=== PATIENT | female | born 1950 | race Caucasian/White ===

== ENCOUNTER 2024-06-11 09:32 | Observation (INO) ==
--- NOTE | 2024-05-15 13:45 | PAT Medication Instructions ---
Medication Instructions Date of Service May 15, 2024 Home Medications calcium 500 mg (carb,gluconate)-magnesium 250 mg (gluc,oxide) tablet (Calcium Magnesium) 2 tab PO DAILY fluoxetine 40 mg capsule 40 mg PO QAM omega 7-ado-akr-fish oil 1,200 mg (144 mg-216 mg) capsule (Fish Oil) 2 cap PO DAILY omeprazole 20 mg tablet,delayed release 20 mg PO QAM oxycodone 5 mg tablet 5 mg PO TID PRN pravastatin 40 mg tablet 40 mg PO HS ropinirole 5 mg tablet 5 mg PO BID STOP taking 2 weeks before surgery (or as soon as possible if surgery is within 2 weeks) omega 6-iyy-rtu-fish oil 1,200 mg (144 mg-216 mg) capsule (Fish Oil) 2 cap PO DAILY DO NOT take the morning of surgery calcium 500 mg (carb,gluconate)-magnesium 250 mg (gluc,oxide) tablet (Calcium Magnesium) 2 tab PO DAILY Take morning of surgery With a small sip of water, OTHERWISE NOTHING TO EAT OR DRINK AFTER MIDNIGHT: fluoxetine 40 mg capsule 40 mg PO QAM omeprazole 20 mg tablet,delayed release 20 mg PO QAM oxycodone 5 mg tablet 5 mg PO TID PRN(if needed) ropinirole 5 mg tablet 5 mg PO BID Take evening before surgery oxycodone 5 mg tablet 5 mg PO TID PRN(if needed) pravastatin 40 mg tablet 40 mg PO HS ropinirole 5 mg tablet 5 mg PO BID Other Notes If you have any questions please call us at [phone] or [phone] or [phone] or [phone]
--- NOTE | 2024-05-21 13:08 | Anesthesiology Consultation ---
Date of Service May 21, 2024 Assessment & Plan (1) Encounter for pre-operative examination: - right arm restriction. - awaiting surgeon ordered medical clearance, Tanya Espino. Chart Review Chart Review: Pending: Refer to Additional Notes / Consult section and Patient seen in Pre Admission Testing Teaching & Discussion Pre-Anesthesia Teaching/Discussion Notes: Instructed NPO after midnight before surgery, except medications with 15 cc of water. Medication instructions provided according to the PAT guidelines. History Surgery Operation Date: 06/04/24 07:45 Proposed Procedures p L4-S1 Decompression and Fusion, Possible L3-L4 Decompression and Fusion, with Spinal Cord Monitoring - Adrien Truong DO Height/Weight Height: 5 ft Weight: 98.883 kg Allergies Allergy/AdvReac Type Severity Reaction Status Date / Time No Known Allergies Allergy Verified 05/13/24 08:50 Medications Home Medications Medication Instructions Recorded Confirmed Last Taken calcium 500 mg 2 tab PO DAILY 05/13/24 05/13/24 Unknown (carb,gluconate)-magnesium 250 mg (gluc,oxide) tablet (Calcium Magnesium) fluoxetine 40 mg capsule 40 mg PO QAM 05/13/24 05/13/24 Unknown omega 2-tcu-pdp-fish oil 1,200 mg 2 cap PO DAILY 05/13/24 05/13/24 Unknown (144 mg-216 mg) capsule (Fish Oil) omeprazole 20 mg tablet,delayed 20 mg PO QAM 05/13/24 05/13/24 Unknown release oxycodone 5 mg tablet 5 mg PO TID PRN Pain 05/13/24 05/13/24 Unknown pravastatin 40 mg tablet 40 mg PO HS 05/13/24 05/13/24 Unknown ropinirole 5 mg tablet 5 mg PO BID 05/13/24 05/13/24 Unknown Past Medical History Medical History (Updated 05/21/24 @ 13:29 by Pearl Perez PA-C) Depression GERD (gastroesophageal reflux disease) controlled, stable per pt HLD (hyperlipidemia) HTN (hypertension) controlled, stable per pt Hx of fracture of nose (2020) HX: breast cancer (2004) right mastectomy, chemo, punxsy Limb alert care status right arm Osteoarthritis Restless leg syndrome Patient denies h/o stroke, seizures, heart attack, heart failure, DM, blood clots/DVTs or blood transfusions. Exercise / Class Metabolic Activity II 4-5 Yardwork/Stairs/Walk up hill (shortness of breath with one flight of stairs ongoing for several years-denies change or worsening; denies chest discomfort) Past Surgical History Surgical History History of bladder surgery bladder tac History of carpal tunnel release x3 History of nasal surgery (2020) due to fracture History of right hip replacement (2022) yayo mendoza History of total left knee replacement (07/2023) yayo mendoza Hx of section x3 Hx of cholecystectomy (1989) Hx of colonoscopy Hx of right mastectomy (2004) with LN removal- breast ca Past Anesthesia History No Hx of Anesthesia Complications and No Family Hx of Anesthesia Complications History of PONV History of PONV (does well with IV pre-dosing) and Hx of Motion Sickness Social History Smoking Status: Never smoker Do You Dip or Chew Tobacco: No Hx Alcohol Use: No Hx Substance Use: No substance use type: does not use Review of Systems Patient denies chest pain, snoring, witnessed apneas, fever, chills, cough, wheezing, or palpitations. Physical Exam Vital Signs Vitals BP 138/75 P 80 TEMP 97.9 SP02 95% on RA RESP 17 Physical Patient resting comfortably in chair in no acute distress, alert and oriented, responding appropriately throughout visit Full cervical extension range of motion without pain TMD 3.5 finger breadths Mallampati Score 2 Dentition: edentulous, full upper and lower dentures Lungs: normal respiratory effort. Good air movement, clear throughout to auscultation, no adventitious breath sounds Cardiac: regular rate and rhythm, no murmurs noted Carotid arteries: negative bruit bilat Lab Results Anesthesia Preop Results Results Anesthesia Widget: WBC 6.57 K/ul (4.8-10.8) 05/21/24 Hgb 12.6 g/dl (12.0-16.0) 05/21/24 Hct 40.0 % (37.0-47.0) 05/21/24 Plt 251 K/uL (130-400) 05/21/24 Na 137 mmol/L (136-145) 05/21/24 K 4.3 mmol/L (3.5-5.1) 05/21/24 Cl 103 mmol/L (98-107) 05/21/24 CO2 28 mmol/L (21-32) 05/21/24 BUN 21 mg/dl (6-23) 05/21/24 Creat 0.87 mg/dl (0.6-1.2) 05/21/24 Glucose Level 87 mg/dl (70-99(Fasting)) 05/21/24 PT 10.2 Seconds (9.0-12.0) 05/21/24 PTT 29 Seconds (21-31) 05/21/24 INR 0.9 (0.9-1.1) 05/21/24 Urine Color Yellow 05/21/24 Urine Appearance Clear (Clear) 05/21/24 Urine pH 5.5 (4.5-7.5) 05/21/24 Urine Specific Victor 1.019 (1.000-1.030) 05/21/24 Urine Protein Negative (Negative) 05/21/24 Urine Glucose (UA) Negative (Negative) 05/21/24 Urine Ketones Negative (Negative) 05/21/24 Urine Blood Negative (Negative) 05/21/24 Urine Nitrite Negative (Negative) 05/21/24 Urine Bilirubin Negative (Negative) 05/21/24 Urine Urobilinogen Negative (Negative) 05/21/24 Urine Leukocyte Esterase Negative (Negative) 05/21/24 Blood Type A Positive 05/21/24 Antibody Screen NEGATIVE 05/21/24 Testing Electrocardiogram Date: 09/04/23 Sinus rhythm, rate 86 bpm Chest X-Ray Date: 05/21/24 No acute findings.
[~2024-06-11 09:32] MED LIST: DEXAMETHASONE SOD INJ 4 MG/ML VIAL ONE; GLYCOPYRROLATE 0.2 MG/ML VIAL ONE; LIDOCAINE 2% 2 ML VIAL/AMP(20MG/ML) INFIL ONE; MIDAZOLAM HCL 1 MG/ML 2ML VIAL ONE; ONDANSETRON INJ 2 MG/ML 2 ML VIAL ONE; PHENYLEPHRINE HCL 10 MG/ML VIAL ONE; PROPOFOL IV EMULSION 10 MG/ML 20 ML VIAL IV ONE; ROCURONIUM BROMIDE 10 MG/ML 5 ML VIAL IV ONE; SUGAMMADEX SODIUM 200 MG/2 ML VIAL IV ONE; fentaNYL citrate PF 100 MCG/2 ML VIAL ONE
[2024-06-11] MEDS: CeleBREX 200 MG CAP PO SCH (09:52)
[2024-06-11] MEDS: ACETAMINOPHEN 500 MG TAB PO SCH (09:52)
[2024-06-11] MEDS: GABAPENTIN 300 MG CAP PO SCH (09:52)
[2024-06-11] MEDS: LR 60ML/HR IV SCH (09:53)
[2024-06-11] MEDS: LR 15ML/HR IV SCH (10:15)
[2024-06-11] MEDS ORDERED: LABETALOL HCL IV 5 MG/ML 20ML IV PRN (10:23)
[2024-06-11] MEDS ORDERED: PROMETHAZINE HCL 6.25 MG in SODIUM CHLORIDE 0.9% 50 ML IV PRN (10:23)
[2024-06-11] MEDS ORDERED: ATROPINE SULFATE 0.1 MG/ML 10ML SYR IV PRN (10:23)
--- NOTE | 2024-06-11 11:28 | History & Physical Bridge Note ---
Date of Service June 11, 2024 History & Physical Bridge Note I have examined the patient, reviewed the History & Physical and in the interval since the performance of the History & Physical I have noted the following changes of clinical significance: no changes noted
--- NOTE | 2024-06-11 11:29 | History & Physical Report ---
Date of Service June 11, 2024 Assessment & Plan (1) Two-level lumbosacral spondylosis with radiculopathy: Plan: L4-S1 decompression fusion, possible L3-L4 decompression fusion History of Present Illness Chief Complaint: Back and bilateral leg pain Primary Care Provider: ALMA Zacarias This is a 73-year-old female presents with chronic persistent back and leg pain after failing course of nonoperative care she is here for surgical intervention. Allergies Allergy/AdvReac Type Severity Reaction Status Date / Time No Known Allergies Allergy Verified 06/11/24 09:50 Home Medications Medication Instructions Recorded Confirmed Type calcium 500 mg 2 tab PO DAILY 05/13/24 06/11/24 History (carb,gluconate)-magnesium 250 mg (gluc,oxide) tablet (Calcium Magnesium) fluoxetine 40 mg capsule 40 mg PO QAM 05/13/24 06/11/24 History omega 8-udq-hek-fish oil 1,200 mg 2 cap PO DAILY 05/13/24 06/11/24 History (144 mg-216 mg) capsule (Fish Oil) omeprazole 20 mg tablet,delayed 20 mg PO QAM 05/13/24 06/11/24 History release oxycodone 5 mg tablet 5 mg PO TID PRN Pain 05/13/24 06/11/24 History pravastatin 40 mg tablet 40 mg PO HS 05/13/24 06/11/24 History ropinirole 5 mg tablet 5 mg PO BID 05/13/24 06/11/24 History Past Med/Surg History Problem List (Updated 06/11/24 @ 11:29 by Adrien Truong DO) Two-level lumbosacral spondylosis with radiculopathy Encounter for pre-operative examination Medical History (Updated 06/11/24 @ 11:29 by Adrien Truong DO) Osteoarthritis Restless leg syndrome Depression Hx of fracture of nose (2020) HTN (hypertension) controlled, stable per pt HLD (hyperlipidemia) Limb alert care status right arm HX: breast cancer (2004) right mastectomy, chemo, punxsy GERD (gastroesophageal reflux disease) controlled, stable per pt Surgical History History of nasal surgery (2020) due to fracture Hx of colonoscopy History of carpal tunnel release x3 Hx of section x3 Hx of right mastectomy (2004) with LN removal- breast ca History of right hip replacement (2022) yayo mendoza History of total left knee replacement (07/2023) yayo mendoza History of bladder surgery bladder tac Hx of cholecystectomy (1989) Social History Smoking Status: Never smoker Second Hand Exposure: No; Do You Dip or Chew Tobacco: No; Tobacco Cessation Education Requested by Patient: No Hx Alcohol Use: No Hx Substance Use: No Preferred Language: French Communication Ability: Effective Mud Analysis Well Logging Captain Required: No Beliefs That Will Affect Care: None Current Living Situation: Spouse Other Information That Helps Us Care for You: No Feels Safe at Home: Yes Safety Concerns: Feels Safe At This Time Assistive Devices: Denture - Upper, Denture - Lower, Glasses and Hearing Aid - Bilateral Physical Exam Physical Exam: Patient is alert and oriented Heart regular rhythm lungs clear Results & Data Results & Data Vital Signs (Past 12 Hours) Vital Signs Temp Pulse Resp BP Pulse Ox O2 Del Method 06/11/24 09:44 36.8 C 85 20 164/75 H 98 Room Air
[2024-06-11] MEDS: ceFAZolin 2000MG 2,000 MG/15 ML SYR IV SCH ×2 (12:14→21:05)
[2024-06-11] MEDS: ceFAZolin 330 MG/ML 1 GM VIAL ONE ×2 (12:21→13:15)
[2024-06-11] MEDS ORDERED: fentaNYL citrate PF 100 MCG/2 ML VIAL ONE ×2 (12:26→14:31)
[2024-06-11] MEDS: BUPIVACAINE/EPINEPHRINE 0.25% 1:200,000 30 ML VIAL ONE (13:14)
--- NOTE | 2024-06-11 14:32 | Operative Report ---
Post Operative Report Pre & Post Diagnosis Operation Date: 06/11/24 10:45 Pre-Op Diagnosis: #1 two-level lumbosacral spondylosis with radiculopathy #2 lumbar spondylolisthesis with radiculopathy #3 lumbar spinal stenosis #4 morbid obesity Post-Op Diagnosis: Same I identified the patient and participated in the time-out.: Yes Procedure Operation Date: 06/11/24 10:45 Actual Procedures #1 revision decompression with bilateral medial facetectomies and foraminotomies L3-L4, L4-L5 and L5-S1. #2 posterior spinal fusion L4-S1. #3 placement posterior instrumentation L4-S1 using Adams. #4 interbody fusion L4-L5 L5-S1. #5 history of Spira 11 x 26 mm x 2 at L4-5 and 9 x 26 mm x 2 at L5-S1. #6 placement locally harvested morselized autograft and posterior gutters. #7 placement fuse collagen sponge, with Koros in the posterior lateral gutters and os design interbody space. #8 application of versa wrap over the exposed dura. Surgeon Adrien Truong, DO Roller Mechanic Elinor Quinteros Estimated Blood Loss 450 Findings See Below The patient is 5 foot tall weighing over 99 kg with a BMI in excess of 42. Patient's body habitus did contribute to significant technical difficulty with positioning exposure and the procedure itself. This had at least 50% increased operative time. I am recommending a modifier 22. Specimens None Indications This is a 73-year-old female who presents publish diagnosis of failing course of nonoperative care she is here for surgical invention. Description of Procedure Patient was met with identified informed sent obtained. Patient was then taken to the operative suite underwent intubation placed in the prone position on the Wade table top of the Kenny frame. All bony prominences well-padded eyes inspected to ensure no external precipice spinal. This point the lumbar spine was prepped and draped in normal sterile fashion. Sharp dissection with the assistance of Bovie cautery was performed down to and exposing the remaining lamina and transverse processes of L4-5 and the sacral ala bilaterally. For caudal cephalad fashion a revision complete laminectomy of L5 L4 and partial laminectomy of L3 was performed this included bilateral medial facetectomies and foraminotomies addressing all neural compression and subarticular stenosis at the L3-L4 level. Pedicle screws were then placed at L for L5 and S1 levels bilaterally with this assistance of fluoroscopy and appropriate sized anitra placed. By way of transforaminal approach on the right discectomy of L5-S1 was performed endplates guarded to subcortical bleeding bone and 9 x 26 mm spiral cage filled with os design tapped in position. Then proceeded to the left transforaminal region at L5-S1. Again discectomy performed. Endplates guided to subcortical the bone and a second 9 x 26 mm Spira cage filled with os design tapped into position. Then approached L4-[address] of a transforaminal approach on the left. A discectomy was performed endplates guided to subcortical bleeding bone and a 11 x 26 mm Spira cage filled with os design tapped in position. Then proceeded to the right transforaminal region of L4-L5. Discectomy performed. Endplates curetted to subcortical bleeding bone. A second 11 x 26 mm Spira cage filled with os design bone graft at the position. The transverse processes of L4-5 and the sacral ala burred to subcortical bleeding bone. Infuse collagen sponge, with Koros and local autograft placed in the posterior gutters. Versa wrap placed over the exposed dura. 15 round JACK drain inserted. The incision was then closed with 1 Vicryl the fascia 2-0 Vicryl subcutaneously and 4 Monocryl for final skin closure. Steri-Strips and sterile dressing placed. Patient waken taken to PACU stable condition. Please note spinal cord monitoring was utilized at the procedure no changes noted. Elinor Quinteros was present at the entire surgery about the patient positioning complex portion of the surgery and final skin closure. I attest to the content of the Intraoperative Record and any orders documented therein. Any exceptions are noted below.
[2024-06-11] MEDS: FLOSEAL HEMOSTATIC MATRIX 10ML TOP ONE (14:34)
--- NOTE | 2024-06-11 14:42 | Fluoroscopy Report ---
FL lumbar spine 2-3V CLINICAL HISTORY: L4-S1 Decompression/FUSION COMPARISON STUDY: No previous studies for comparison. Fluoroscopy time: 24 seconds. Number of fluoroscopic images: 2 Ka,r: 24.69 mGy. FINDINGS: Fluoroscopy was provided during L4-S1 decompression and fusion. There are bilateral pedicle screws at the L4, L5 and S1 levels with interconnecting rods. Interbody spacers at the L4-L5 and L5- S1 levels are present. No unexpected radiopaque foreign bodies. IMPRESSION: Fluoroscopy provided during L4-S1 decompression and fusion. ACT 112: Negative or not required by law. Electronically signed by: Cesar Avelar M.D. 06/11/2024 2:41 PM
[2024-06-11] MEDS: HYDROmorphone INJ 1 MG/ML SYRINGE IV PRN ×3 (14:55→16:38)
--- NOTE | 2024-06-11 15:45 | Anesthesiology Progress Note ---
Date of Service June 11, 2024 Anesthesia Post Procedure Vital Signs Vital Signs: Temp Pulse Pulse Resp BP BP Pulse Ox 06/11/24 15:35 67 14 137/74 96 06/11/24 15:25 70 17 149/60 H 98 06/11/24 15:15 69 15 151/62 H 95 06/11/24 15:05 68 18 140/60 95 06/11/24 14:55 72 17 142/58 H 99 06/11/24 14:45 36.4 C L 66 17 152/67 H 99 06/11/24 09:44 36.8 C 85 20 164/75 H 98 O2 Del Method O2 Flow Rate 06/11/24 15:35 Oxymask 2 06/11/24 15:25 Room Air 06/11/24 15:15 Room Air 06/11/24 15:05 Oxymask 5 06/11/24 14:55 Oxymask 5 06/11/24 14:45 Oxymask 5 06/11/24 09:44 Room Air Pain Intensity Bilateral Back: Pain Intensity: 4 Transfer of Care Handoff Completed per policy Notes Mental Status: alert / awake / arousable Patient Amnestic to Procedure: Yes Nausea / Vomiting: adequately controlled Pain: adequately controlled Airway Patency, RR, SpO2: stable & adequate BP & HR: stable & adequate Hydration State: stable & adequate Anesthetic Complications: no major complications apparent
[2024-06-11] MEDS ORDERED: HYDROmorphone INJ 0.5 MG/0.5 ML SYR IV PRN (16:10)
[2024-06-11] MEDS ORDERED: ACETAMINOPHEN 1,000 MG/100 ML VIAL IV PRN (16:10)
[2024-06-11] MEDS ORDERED: DO NOT ADMINISTER FLU VACCINE PRN (16:10)
[2024-06-11] MEDS ORDERED: PROMETHAZINE 12.5 MG/50.5 ML BAG IV PRN (16:10)
[2024-06-11] MEDS ORDERED: SOD PHOSPHATE/SOD BIPHOSPHATE ENEMA 132 ML BTL PR PRN (16:10)
[2024-06-11] MEDS ORDERED: FAMOTIDINE 20 MG TAB PO PRN (16:10)
[2024-06-11] MEDS ORDERED: hydrOXYzine HCl 25 MG TAB PO PRN (16:10)
[2024-06-11] MEDS ORDERED: MAGNESIUM HYDROXIDE SUSP 30 ML UDC PO PRN (16:10)
[2024-06-11] MEDS ORDERED: LORazepam 2 MG/1 ML VIAL IV PRN (16:10)
[2024-06-11] MEDS ORDERED: METOCLOPRAMIDE HCL INJ 5 MG/ML 2 ML VIAL IV PRN (16:10)
[2024-06-11] MEDS ORDERED: ONDANSETRON 4 MG OD TAB PO PRN (16:10)
[2024-06-11] MEDS ORDERED: LORazepam 0.5 MG TAB PO PRN (16:10)
[2024-06-11] MEDS ORDERED: ONDANSETRON INJ 2 MG/ML 2 ML VIAL IV PRN (16:10)
[2024-06-11] MEDS ORDERED: diphenhydrAMINE Capsule 25 MG CAP PO PRN (16:10)
[2024-06-11] MEDS ORDERED: ALUMINUM/MAGNESIUM SUSP 30 ML UDC PO PRN (16:10)
[2024-06-11] MEDS ORDERED: bisacodyL 10 MG SUPP PR PRN (16:10)
[2024-06-11] MEDS ORDERED: NALOXONE HCL 0.4 MG/1 ML VIAL/CARP IV PRN (16:10)
[2024-06-11] MEDS ORDERED: DO NOT ADMINISTER PNEUMOCOCCAL VACCINE PRN (16:10)
[2024-06-11] MEDS: HYDROmorphone INJ 1 MG/ML SYRINGE ONE (16:16)
[2024-06-11] MEDS: HYDROmorphone INJ 0.5 MG/0.5 ML SYR IV STA (16:16)
[2024-06-11] MEDS: ACETAMINOPHEN 500 MG TAB PO PRN (16:38)
--- NOTE | 2024-06-11 17:26 | Hospitalist Consultation ---
Date of Consultation June 11, 2024 Assessment & Plan (1) Two-level lumbosacral spondylosis with radiculopathy: (2) Restless leg syndrome: (3) HTN (hypertension): (4) HLD (hyperlipidemia): (5) HX: breast cancer: (6) GERD (gastroesophageal reflux disease): (7) Depression: Plan #Lumbar stenosis with radiculopathy s/p revision decompression with bilateral facetectomies, L4-S1. EBL 450cc Bowel regimen, pain control, PT/OT, DVT prophylaxis per primary service Monitor labs in AM #HTN, HLD - chronic, stable per patient on lasix/pravastatin at baseline . Suspected valvular disease on exam Continue on lasix 20mg daily, pravastatin 40mg. Do note +murmur on exam (denied ever knowing such, suspect likely underlying , could be worse w/ acute blood loss from surgery) Additional diuretics as needed. Would f/u PCP for routine echo unless needed sooner for surveillance. #RLS- continue requip PO BID. Will check iron w/ AM labs to ensure no underlying MITCH contributing #GERD- chronic/stable. Continues on PPI daily. #Depression- chronic, stable. Continues usual fluoxetine 40mg daily DVT proph: missy dixon, SCDs ordered Dispo: continued inpatient stay Thank you for allowing hospitalist service to participate in the care of Ms Azevedo. Please call with any questions/concerns. Will follow in AM. Supervising Physician Co-Signing Physician Notes The patient was seen by me. The chart was reviewed. Case discussed with PRAFUL Sutton. Agree with assessment and plan History of Present Illness Reason for Consultation: medical management Requesting Physician: Dr Truong Attending Physician: Adrien Truong DO History of Present Illness 73yo female with PMHx significant for HTN, HLD, Vitamin D deficiency, restless legs, anxiety/depression, hx breast ca, lumbar stenosis presented for L4-S1 decompression and fusion with Dr Truong today. Evaluated in 310, daughter Rosio at bedside. Home meds reviewed/confirmed. Diclofenac 50mg TID,, fluoxetine 40mg, lasix 20mg, ropinirole 2mg HD, pravastatin 20mg, oxycodone 5-325 as needed for pain. Reports pain controlled, a little sleepy. Not yet eaten but just got back from OR. Supplemental O2 as needed to maintain sats, presently on room air in room. Discussed lasix use, reports uses for HTN, also occasional leg swelling. Does have murmur on exam, unaware of prior, appears c/w aortic stenosis vs exacerbated w/ acute blood loss from surgery and will monitor. No CP/SOB at present. Daughter plans to stay overnight. Questions/concerns addressed at this time. Allergies Allergy/AdvReac Type Severity Reaction Status Date / Time No Known Allergies Allergy Verified 06/11/24 09:50 Home Medications Medication Instructions Recorded Confirmed Type calcium 500 mg 2 tab PO DAILY 05/13/24 06/11/24 History (carb,gluconate)-magnesium 250 mg (gluc,oxide) tablet (Calcium Magnesium) fluoxetine 40 mg capsule 40 mg PO QAM 05/13/24 06/11/24 History omega 2-wpo-pba-fish oil 1,200 mg 2 cap PO DAILY 05/13/24 06/11/24 History (144 mg-216 mg) capsule (Fish Oil) omeprazole 20 mg tablet,delayed 20 mg PO QAM 05/13/24 06/11/24 History release oxycodone 5 mg tablet 5 mg PO TID PRN Pain 05/13/24 06/11/24 History pravastatin 40 mg tablet 40 mg PO HS 05/13/24 06/11/24 History ropinirole 5 mg tablet 5 mg PO BID 05/13/24 06/11/24 History Patient History Medical History Osteoarthritis Restless leg syndrome Depression Hx of fracture of nose (2020) HTN (hypertension) controlled, stable per pt HLD (hyperlipidemia) Limb alert care status right arm HX: breast cancer (2004) right mastectomy, chemo, punxsy GERD (gastroesophageal reflux disease) controlled, stable per pt Surgical History History of nasal surgery (2020) due to fracture Hx of colonoscopy History of carpal tunnel release x3 Hx of section x3 Hx of right mastectomy (2004) with LN removal- breast ca History of right hip replacement (2022) yayo mendoza History of total left knee replacement (07/2023) yayo mendoza History of bladder surgery bladder tac Hx of cholecystectomy (1989) Social History Smoking Status: Never smoker Second Hand Exposure: No; Do You Dip or Chew Tobacco: No; Tobacco Cessation Education Requested by Patient: No Hx Alcohol Use: No Hx Substance Use: No Preferred Language: Setswana Communication Ability: Effective Coil Machine Supervisor Required: No Beliefs That Will Affect Care: None Current Living Situation: Spouse Other Information That Helps Us Care for You: No Feels Safe at Home: Yes Safety Concerns: Feels Safe At This Time Assistive Devices: Denture - Upper, Denture - Lower, Glasses and Hearing Aid - Bilateral Physical Exam Physical Exam: General: 73yo obese female sitting up in bed resting post-op, NAD, fatigued appearing, daughter at bedside HEENT: head atraumatic, normocephalic, mmm Resp: even/unlabored, slightly diminished in the bases but no wheezing/rales CV: regular, +SYSTOLIC MURMUR, best appreciated at RUSB, trace b/l edema (?slightly more on the left, SCDs in place) GI: +BS, soft/NT MSK/Neuro: dressing c/d/i, JACK w/ bloody drainage, NVI, pulses present Psych: AOx3, cooperative but fatigued/falling back asleep Results & Data Results & Data Vital Signs (Past 12 Hours) Vital Signs Temp Pulse Pulse Resp BP BP Pulse Ox 06/11/24 17:01 36.6 C 71 16 143/71 H 93 06/11/24 16:36 36.4 C L 74 18 152/75 H 98 06/11/24 16:05 36.5 C 75 18 146/72 H 98 06/11/24 15:45 36.4 C L 06/11/24 15:35 67 14 137/74 96 06/11/24 15:25 70 17 149/60 H 98 06/11/24 15:15 69 15 151/62 H 95 06/11/24 15:05 68 18 140/60 95 06/11/24 14:55 72 17 142/58 H 99 06/11/24 14:45 36.4 C L 66 17 152/67 H 99 06/11/24 09:44 36.8 C 85 20 164/75 H 98 O2 Del Method O2 Flow Rate 06/11/24 17:01 Nasal Cannula 2 06/11/24 16:36 Nasal Cannula 1 06/11/24 16:05 Nasal Cannula 2 06/11/24 15:45 06/11/24 15:35 Oxymask 2 06/11/24 15:25 Room Air 06/11/24 15:15 Room Air 06/11/24 15:05 Oxymask 5 06/11/24 14:55 Oxymask 5 06/11/24 14:45 Oxymask 5 06/11/24 09:44 Room Air Diagnostic Findings Lumbar Spine X-Ray 06/11/24 10:45 FL lumbar spine 2-3V CLINICAL HISTORY: L4-S1 Decompression/FUSION COMPARISON STUDY: No previous studies for comparison. Fluoroscopy time: 24 seconds. Number of fluoroscopic images: 2 Ka,r: 24.69 mGy. FINDINGS: Fluoroscopy was provided during L4-S1 decompression and fusion. There are bilateral pedicle screws at the L4, L5 and S1 levels with interconnecting rods. Interbody spacers at the L4-L5 and L5-S1 levels are present. No unexpected radiopaque foreign bodies. IMPRESSION: Fluoroscopy provided during L4-S1 decompression and fusion. ACT 112: Negative or not required by law. Electronically signed by: Cesar Avelar M.D. 06/11/2024 2:41 PM PG Care Time/CCT Total # of Minutes Spent Total Time Spent with Patient: Total time spent is greater than 50% in coordination of care (as documented) at patient's floor/unit and/or counseling patient: Coding Level of Care Code 57868 IN/OBS CONSULT LVL 3,45M Diagnoses Two-level lumbosacral spondylosis with radiculopathy M47.27 Restless leg syndrome G25.81 HTN (hypertension) I10 HLD (hyperlipidemia) E78.5 HX: breast cancer Z85.3 GERD (gastroesophageal reflux disease) K21.9 Depression F32.A
[2024-06-11] MEDS ORDERED: rOPINIRole HCL 1 MG TABLET PO SCH (21:00)
[2024-06-11] MEDS ORDERED: ROPINIROLE 5 MG PO SCH (21:00)
[2024-06-11] MEDS: PRAVASTATIN SOD 40 MG TAB PO SCH (21:06)
[2024-06-11] MEDS: rOPINIRole HCL 2 MG TABLET PO SCH (21:06)
[2024-06-11] MEDS: DOCUSATE SODIUM/SENNA 50/8.6MG TAB PO SCH (21:07)
[2024-06-12] MEDS: oxyCODONE HCL IR 5 MG TAB (IMMEDIATE RELEASE) PO PRN (01:08)
[2024-06-12] MEDS: traMADol HCL 50 MG TABLET PO PRN (06:19)
[2024-06-12 07:42] LABS: Basophils # (auto) 0.02 K/uL (0.00-0.20); Basophils % (auto) 0.2 %; Hematocrit (blood only) 33.7 % (37.0-47.0); Hemoglobin 10.5 g/dl (12.0-16.0); Immature Granulocytes # (auto) 0.04 K/uL (0.01-0.20); Immature Granulocytes % (auto) 0.4 %; Lymphocytes % (auto) 11.4 %; Mean Corpuscular Hemoglobin 27.5 pg (25.0-34.0); Mean Corpuscular Hgb Conc 31.2 g/dL (32.0-36.0); Mean Corpuscular Volume 88.2 fL (80.0-100.0); Mean Platelet Volume 10.2 fL (9.4-12.4); Monocytes # (auto) 0.63 K/uL (0.11-0.59); Neutrophils # (auto) 8.61 K/uL (1.40-6.50); Platelet Count 250 K/uL (130-400); RDW Coefficient of Variation 14.3 % (11.5-14.5); RDW Standard Deviation 46.2 fL (36.4-46.3); Red Blood Count 3.82 M/uL (4.20-5.40)
--- NOTE | 2024-06-12 08:13 | Hospitalist Progress Note ---
Date of Service June 12, 2024 Assessment & Plan (1) Two-level lumbosacral spondylosis with radiculopathy: (2) Heart murmur on physical examination: (3) Restless leg syndrome: (4) HTN (hypertension): (5) HLD (hyperlipidemia): (6) HX: breast cancer: (7) GERD (gastroesophageal reflux disease): (8) Depression: Plan #Lumbar stenosis with radiculopathy s/p revision decompression with bilateral facetectomies, L4-S1. EBL 450cc WBC wnl, afebrile Hgb 12.6-->10.5, acute blood loss anemia from surgery (EBL 450cc, JACK) as well as dilutional aspect from IVF suspected. VSS/asymptomatic. Notable did check iron studies w/ her RLS and iron borderline w/ low trans % sat and discussed PO iron once moving bowels but do not suspect needs IV venofer. Renal function stable Pain control/bowel regimen/PT/OT/DVT per primary service Note patient denies flatus but abd soft/nontender, remains on regimen and monitor Per patient, plans for dc on MONDAY #MURMUR - on exam, systolic murmur, MILD. Suspect mild-moderate underlying as real cause for her lasix use. BNP mild elevation but on room air and continues on lasix 20mg daily but did discuss w/ patient to follow up with her PCP about routine ECHO/surveillance. Does NOT have any red flags LE/angina/Syncope but were discussed. Monitor volume status, avoid IVF unless needed to prevent overload. Did discuss likely benefit from additional prn lasix for weight gain/edema at dc to discuss w/ PCP #HTN, HLD - chronic, stable per patient on lasix/pravastatin at baseline BP 124/54 and remains on lasix 20mg daily. F/u PCP about murmur Continues on pravastatin Monitor #RLS- continue requip PO BID. Iron studies w/ borderline ferritin 30.9, low trans % sat. Consider Venofer but suspect benefit from PO iron once moving bowels at dc #GERD- chronic/stable. Continues on PPI daily. #Depression- chronic, stable. Continues usual fluoxetine 40mg daily DVT proph: Devaughn melgar ordered Dispo: continued inpatient stay Thank you for allowing hospitalist service to participate in the care of Ms Azevedo. Please call with any questions/concerns. Will follow in AM. Admission and Anticipated Discharge Date Admission Date: June 11, 2024 Supervising Physician Co-Signing Physician Notes The patient was not seen by me. The chart was reviewed. Case discussed with PRAFUL Sutton. Agree with assessment and plan Subjective Eval this morning, sitting up in bed. MUCH improved. Just medicated for pain. Denies flatus but has +BS, abdomen NONTENDER and reports just getting miralax. Not yet seen by therapy. Again discussed murmur/aortic stenosis and rec to f/u PCP about routine ECHO and possible increase lasix. She does note she has had increased leg swelling over the past couple months, also discussed salt/fluid balance. No fever/chills, CP/SOB at this time. Plans for dc on Monday. Questions/concerns addressed at this. Physical Exam 2 Physical Exam: General: 73yo obese female sitting up in bed, appears MUCH improved, daughter in room, NAD HEENT: head atraumatic, normocephalic, mmm Resp: even/unlabored, slightly diminished in the bases but no wheezing/rales, 96% on RA CV: regular, +SYSTOLIC MURMUR best appreciated at RUSB, trace b/l edema, missy hose/SCDs in place GI: +BS but slightly hypoactive but SOFT/NONTENDER, no guarding/rebound MSK/Neuro: dressing c/d/i, JACK w/ bloody/serosanguineous drainage, NVI, pulses present Psych: AOx3, cooperative Results & Data Results & Data Vital Signs (Past 12 Hours) Vital Signs Temp Pulse Resp BP Pulse Ox O2 Del Method O2 Flow Rate 06/12/24 07:44 37 C 77 18 124/54 L 96 Room Air 06/12/24 03:42 36.6 C 70 16 135/69 94 Room Air 06/11/24 23:08 36.6 C 76 16 113/65 96 Nasal Cannula 2 Laboratory Results 06/12/24 06:38 06/12/24 06:38 Mag 1.8 Iron 51, TIBC 382, Transferrin 273, Trans % sat 13, ferritin 30.9 BNP 145 TSH 0.326 Diagnostic Findings Lumbar Spine X-Ray 06/11/24 10:45 FL lumbar spine 2-3V CLINICAL HISTORY: L4-S1 Decompression/FUSION COMPARISON STUDY: No previous studies for comparison. Fluoroscopy time: 24 seconds. Number of fluoroscopic images: 2 Ka,r: 24.69 mGy. FINDINGS: Fluoroscopy was provided during L4-S1 decompression and fusion. There are bilateral pedicle screws at the L4, L5 and S1 levels with interconnecting rods. Interbody spacers at the L4-L5 and L5-S1 levels are present. No unexpected radiopaque foreign bodies. IMPRESSION: Fluoroscopy provided during L4-S1 decompression and fusion. ACT 112: Negative or not required by law. Electronically signed by: Cesar Avelar M.D. 06/11/2024 2:41 PM PG Care Time/CCT Total # of Minutes Spent Total Time Spent with Patient: Total time spent is greater than 50% in coordination of care (as documented) at patient's floor/unit and/or counseling patient: Coding Level of Care Code 80651 SUB INP/OBS CARE 3/50MIN Diagnoses Two-level lumbosacral spondylosis with radiculopathy M47.27 Heart murmur on physical examination R01.1 Restless leg syndrome G25.81 HTN (hypertension) I10 HLD (hyperlipidemia) E78.5 HX: breast cancer Z85.3 GERD (gastroesophageal reflux disease) K21.9 Depression F32.A
[2024-06-12 08:27] LABS: Calcium 8.8 mg/dl (8.6-10.3); Magnesium 1.8 mg/dl (1.7-2.4); Potassium 4.1 mmol/L (3.5-5.1)
[2024-06-12 08:32] LABS: BUN Creatinine Ratio 18.6 (10-20); Creatinine Clr Calc Pharmacy 74.6 ml/min
[2024-06-12 08:45] LABS: Thyroid Stimulating Hormone 0.326 uIu/ml (0.300-4.500)
[2024-06-12 08:51] LABS: Ferritin 30.9 ng/ml (8-388)
[2024-06-12] MEDS: dexAMETHasone 6 MG in SYRINGE 0 ML IV SCH (09:00)
[2024-06-12] MEDS: FLUoxetine HCL 20 MG CAP PO SCH (09:00)
[2024-06-12] MEDS: PANTOprazole 40 MG TAB PO SCH (09:04)
[2024-06-12] MEDS: POLYETHYLENE (MIRALAX) 17 GM PACK PO SCH (09:04)
--- NOTE | 2024-06-12 09:59 | Orthopedic Progress Note ---
Date of Service June 12, 2024 Assessment & Plan (1) Two-level lumbosacral spondylosis with radiculopathy: Plan: At this time continue physical therapy monitor JACK output. Okay discharge home next few days. Admission and Anticipated Discharge Date Admission Date: June 11, 2024 Subjective Back pain is controlled leg pain improved Physical Exam Physical Exam: Patient is currently in bed. She is quite comfortable. Good strength testing. Results & Data Vital Signs (Past 12 Hours) Vital Signs Temp Pulse Resp BP Pulse Ox O2 Del Method O2 Flow Rate 06/12/24 07:44 37 C 77 18 124/54 L 96 Room Air 06/12/24 03:42 36.6 C 70 16 135/69 94 Room Air 06/11/24 23:08 36.6 C 76 16 113/65 96 Nasal Cannula 2 Queries Orthopedic Spine Obesity: Yes
[2024-06-13] MEDS: ceFAZolin 2000MG 2,000 MG/15 ML SYR IV SCH (05:03)
[2024-06-13] MEDS: ACETAMINOPHEN 500 MG TAB PO SCH (05:03)
[2024-06-13] MEDS: GABAPENTIN 300 MG CAP PO SCH (05:04)
[2024-06-13] MEDS: LR 15ML/HR IV SCH (05:04)
[2024-06-13] MEDS: LR 60ML/HR IV SCH (05:04)
[2024-06-13] MEDS: CeleBREX 200 MG CAP PO SCH (05:04)
--- NOTE | 2024-06-13 08:31 | Orthopedic Progress Note ---
Date of Service June 13, 2024 Assessment & Plan (1) Two-level lumbosacral spondylosis with radiculopathy: Plan: At this time we will continue physical therapy. We will change her dressing DC drain today. Possible discharge home tomorrow. Admission and Anticipated Discharge Date Admission Date: June 11, 2024 Subjective Back pain controlled leg pain improved Physical Exam Physical Exam: Patient is in bed. She is comfortable. Distracted testing. Results & Data Vital Signs (Past 12 Hours) Vital Signs Temp Pulse Resp BP Pulse Ox O2 Del Method 06/13/24 08:00 37 C 75 16 113/82 94 Room Air 06/12/24 23:45 36.9 C 75 18 113/51 L 94 Room Air Queries Orthopedic Spine Obesity: Yes
--- NOTE | 2024-06-13 08:45 | Hospitalist Progress Note ---
Date of Service June 13, 2024 Assessment & Plan (1) Two-level lumbosacral spondylosis with radiculopathy: (2) Heart murmur on physical examination: (3) Restless leg syndrome: (4) HTN (hypertension): (5) HLD (hyperlipidemia): (6) HX: breast cancer: (7) GERD (gastroesophageal reflux disease): (8) Depression: Plan #Lumbar stenosis with radiculopathy s/p revision decompression with bilateral facetectomies, L4-S1. EBL 450cc WBC wnl, afebrile Hgb 12.6-->10.5, acute blood loss anemia from surgery (EBL 450cc, JACK) as well as dilutional aspect from IVF suspected. VSS/asymptomatic. Notable did check iron studies w/ her RLS and iron borderline w/ low trans % sat and discussed PO iron once moving bowels but do not suspect needs IV venofer. Pain control/bowel regimen/PT/OT/DVT per primary service Plans for dc tomorrow #MURMUR- unknown per patient- noted on exam, systolic murmur, MILD. Suspect mild-moderate underlying BNP minimal elevation but does not appear significantly volume overloaded and w/ acute blood loss anemia from surgery would avoid additional diuretics for now but cautious use of IVF if needed. Remains on lasix 20mg daily but rec f/u PCP for screening ECHO/monitoring. No red flag sx but were discussed and can f/u #HTN, HLD - chronic, stable per patient on lasix/pravastatin at baseline, BP 113/82 F/u re murmur above #RLS- continue requip PO BID. Iron studies w/ borderline ferritin 30.9, low trans % sat consistent w/ MITCH Consider PO iron outpatient once moving bowels, also rec to increase red meat/Vit C as usually eats fish/chicken and not a lot of red meat #GERD- chronic/stable. Continues on PPI daily. #Depression- chronic, stable. Continues usual fluoxetine 40mg daily DVT proph: Devaughn melgar ordered Dispo: continued inpatient stay Thank you for allowing hospitalist service to participate in the care of Ms Azevedo. Hospitalist group will SIGN OFF, plans for dc 5/2 per patient/primary Please call with any questions/concerns. Admission and Anticipated Discharge Date Admission Date: June 11, 2024 Supervising Physician Co-Signing Physician Notes The patient was not seen by me. The chart was reviewed. Case discussed with PRAFUL Sutton. Agree with assessment and plan Subjective Eval this morning, sitting up in bed. Pain controlled. Got washed up. Feels well. Passing gas, no BM. Plans for dc tomorrow. Physical Exam 2 Physical Exam: General: 73yo obese female sitting up in bed, NAD, daughter in room, reports feeling well, looks good HEENT: head atraumatic, normocephalic, mmm Resp: even/unlabored, slightly diminished in the bases but no wheezing/rales, 96% on RA CV: regular, +SYSTOLIC MURMUR best appreciated at RUSB, trace b/l edema, missy hose/SCDs in place GI: +BS, soft, no overt tenderness/guarding/rebound MSK/Neuro: dressing c/d/i, JACK w/ serosanguineous drainage, NVI, pulses present Psych: AOx3, cooperative Results & Data Results & Data Vital Signs (Past 12 Hours) Vital Signs Temp Pulse Resp BP Pulse Ox O2 Del Method 06/13/24 08:00 37 C 75 16 113/82 94 Room Air 06/12/24 23:45 36.9 C 75 18 113/51 L 94 Room Air Laboratory Results 06/12/24 06:38 06/12/24 06:38 PG Care Time/CCT Total # of Minutes Spent Total Time Spent with Patient: Total time spent is greater than 50% in coordination of care (as documented) at patient's floor/unit and/or counseling patient: Coding Level of Care Code 52310 SUB INP/OBS CARE 2/35MIN Diagnoses Two-level lumbosacral spondylosis with radiculopathy M47.27 Heart murmur on physical examination R01.1 Restless leg syndrome G25.81 HTN (hypertension) I10 HLD (hyperlipidemia) E78.5 HX: breast cancer Z85.3 GERD (gastroesophageal reflux disease) K21.9 Depression F32.A
[2024-06-13 19:57] VITALS: RESP 16
[2024-06-14 07:53] VITALS: TEMP 98.6; O2SAT 97
--- NOTE | 2024-06-14 10:02 | Discharge Summary ---
Date of Service June 14, 2024 Admission HPI Per Admitting Provider This is a 73-year-old female presents with chronic persistent back and leg pain after failing course of nonoperative care she is here for surgical intervention. Principal Diagnosis Lumbar spondylosis with radiculopathy Discharge Data Allergies Allergy/AdvReac Type Severity Reaction Status Date / Time No Known Allergies Allergy Verified 06/11/24 09:50 Consultations 06/11/24 16:10 Consult Hospitalist Routine Procedures Performed Operation Date: 06/11/24 10:45 Actual Procedures p L4-S1 Decompression and Fusion, Spinal Cord Monitoring(Not Applicable) - Adrien Truong DO Ordered Studies 06/11/24 10:45 FL lumbar spine 2-3V Routine Hospital Course (1) Two-level lumbosacral spondylosis with radiculopathy: Patient underwent revision decompression fusion tolerated this well was taken to orthopedic for postoperative. Postop she progressed appropriately. JACK drain decreasing. Extracted testing. Pain well-controlled. Subsidy discharged home. Discharge orders instructions from the chart for further review. Total Time Total Time Spent Total Time Spent (In Minutes): 20 minutes Discharge Plan Discharge Items Patient Disposition: Home - Self-Care Reason For Visit: Other Spondylosis with Radiculopathy Lumbar Region Discharge Diagnosis: Cervical spondylosis with radiculopathy Activity: As commented below Non-emergency contact: Primary Care Provider Call non-emergency contact if: you have any medication questions Follow-up/Referrals: Alissa Espino CRNP [Primary Care Provider] - Diet: Regular Addtl Attending Provider Instructions: ACTIVITY RECOMMENDATIONS: SELF CARE INSTRUCTIONS AFTER THORACIC/LUMBAR FUSIONS 1. You may walk to your tolerance. It is good exercise for your legs and back. Expect some back and intermittent leg aches and pains. 2. You may perform "counter-top" level activities (make a sandwich, adelina with a project, etc.). 3. No bending or lifting of more than 10 pounds or back twisting of any nature (roll like a log when turning in bed). 4. You may ride in a car for 20-30 minutes at a time. No driving until after your first visit with your doctor. 5. Frequent changes of position and restricting sitting to 30 minutes at a time will help limit the amount of back spasms and stiffness you may experience. 6. You may discontinue the use of ambulatory aids (cane, crutches, etc.) once your strength and confidence allow. 7. You may superintendent meter tests the shower and let water strike your incision when you arrive home at least once daily. Do not take a tub bath, sit in a hot tub or go into a swimming pool until after your first recheck in the office. 8. You may resume previous diet. SPECIAL CARE INSTRUCTIONS: VERY IMPORTANT TO READ AND REVIEW A. Your surgical incision has been closed with a cosmetic suture under the skin that will dissolve in about 6 weeks. In 14 days, you can use a pair of clean scissors and cut the suture that is left outside of the skin at the ends of your incision. 1. The small skin tapes can be removed 7 days after surgery if they have not fallen off by that point. 2. You may keep the wound open to air as much as possible to promote healing after post-op day number 5 unless told otherwise by your doctor. 3. If you think the wound looks like it is becoming infected (redness or worsening drainage) and/or you are experiencing fever, chill or worsening back pain and muscle spasms, contact the office so that we may evaluate you as soon as possible. B. Complications are uncommon, but please contact us if you have any signs or symptoms of: 1. wound infection (fever higher than 102.5 degrees F, redness, separation of wound, drainage, or increasing pain from the incision) 2. blood clots in legs (pain, swelling, redness and warmth in legs) 3. urinary tract infection (fever higher than 102.5 degrees F, burning upon urination or increased frequency of urination) 4. nerve problems (inability to walk on your toes or heels, numbness, loss of bowel or bladder control) 5. any other symptoms that concern you C. Please call the office at if you have any concerns or questions about your operation or recovery. D. No smoking! Smoking drastically decreases the chance of a solid fusion. E. Do not take any anti-inflammatory medications (Indocin, Advil, Motrin, Aspirin, Naprosyn, etc.) as these may inhibit the chance of a solid fusion. Tylenol is okay to take for pain. MANAGING PAIN AFTER SPINAL SURGERY 1. Narcotic medication is intended for short-term use and will be provided for surgical pain. Surgical pain usually lasts for a period of 4-6 weeks. Narcotic medication includes Percocet, Vicodin, Darvocet, Tylenol #3 or Lortab. 2. Longer-term pain is more appropriately treated with non-narcotic medication such as Tylenol ES. 3. Muscle spasm is not appropriately treated with narcotics. Muscle relaxers such as Soma, Flexeril or Skelaxin can be used along with Tylenol ES. 4. Remember that we all live with some "aches and pains". This is not unusual or uncommon after an injury or as we get older. a. Back pain is expected and may include muscle spasms for 4 to 6 weeks after surgery. The pain should gradually improve. If the pain worsens for no apparent reason, please contact the office. b. Intermittent leg pain may also be experienced and should not be concerned about unless it worsens for no apparent reason. If so, please contact the office. 5. We will provide appropriate medication within the normal guidelines of their prescribed use. We will also be very cautious and aware of potential abuse and extended duration of patients' medication needs. a. Pain medications are for your comfort and to assist with sleep and rest so that the tissue can heal. They are not provided in order to return to normal activity and should not be used through the day. To do so or worsening pain at night can result from ongoing tissue damage and development of tolerance to the prescribed medicine. 6. Please allow 2-3 days to process refills. Prescriptions will not be mailed but must be picked up at the office. FOLLOW UP VISIT: Keep your scheduled follow-up appointment. Any questions, please call the office at . Addtl Skin Piler Provider Instructions: As discussed, you had a murmur on exam. Continue your usual medication furosemide (lasix) daily and watch salt intake and monitor weights. Recommend follow up with primary care about echo (ultrasound of the heart) for monitoring in follow up. Also with LOW iron studies as discussed -- recommend increase red meat consumption and vitamin C. Can consider oral replacement once moving bowels as this can cause constipation. Low iron can also make restless legs worse and suspect benefit from replacement. Pending Studies at Discharge: No Stand-Alone Forms: My [employer], Smoking Cessation Medications and DC Order Prescriptions: New tramadol 50 mg tablet 50 mg PO Q6H PRN (Reason: pain, moderate) Qty: 30 0RF oxycodone 5 mg tablet 5 mg PO Q6H PRN (Reason: pain) Qty: 30 0RF Continued fluoxetine 40 mg Capsule 40 mg PO QAM pravastatin 40 mg Tablet 40 mg PO HS ropinirole 5 mg Tablet 5 mg PO BID oxycodone 5 mg Tablet 5 mg PO TID PRN (Reason: Pain) omeprazole 20 mg Tablet,Delayed Release (Dr/Ec) 20 mg PO QAM omega 3-wwm-upy-fish oil [Fish Oil] 1,200 (144-216) mg Capsule 2 cap PO DAILY Calcium Magnesium 500 mg calcium- 250 mg Tablet 2 tab PO DAILY Discharge Orders: Discharge Order (Routine); Ordered 06/14/24 Ordered By: Adrien Truong Admission Data Admit Date/Time: 06/11/24 14:37 Attending Provider: Adrien Truong Admit Provider: Adrien Truong Primary Care Provider: Alissa Espino Other Providers: Juvencio Mohr; Kathy Cazares; Bj Bentley; Graham Morejon; Owen Franks; Joseph Jeronimo; Mary Castillo; Rosario Soto; Rosio Guaman; Anastacia Urias; Jonn Lowe; Rhina Herndon; Shakeel Steward; Bj Ponce; Anand Pickens; Beni Nicolas; Tiana Bolton; Tiana James; Justyna Murillo; Carri Downing; Jesus Cortes; Verona Woodward; Ismael Harkins; Ronal Guillen; Michelle Bowling; Haylie Barragan; Devorah Glez; Gregg Dorsey; Pau Villa; Owen Paulion; Lizy Myers; Abbey Munguia; Marisol Kahn; Lev Shaffer; Enrique Ham; Nidia Sanon; Abhijit Moore; Lizz Murphy; Clay Humphreys; Alesia Clayton; Gayle Paulson; Sushma Foster; Jeffry Zuniga; Kate Williamson
[2024-06-14 10:19] VITALS: BP 164/75; PULSE 68
--- NOTE | 2024-06-14 10:53 | Communication Note ---
Date of Service: June 14, 2024 Discussed w/ nursing, no events overnight. Plan for dc already this morning and vitals stable. F/u with PCP as discussed for possible iron, monitoring of murmur w/ ECHO. Already dc'd
== END 2024-06-14 10:43 | disposition home or self-care (01) | DRG 427 ==
LOC: ASU 09:32 → INTOOBSV 14:37 → 3E 14:37